=== PATIENT | female | born 1950 | race Caucasian/White ===

== ENCOUNTER 2017-05-24 15:01 | Inpatient (IN) | payer MEDICARE, BC ==
[2017-05-24] MEDS ORDERED: Ondansetron INJ* 2 MG/ML VIAL IV PRN (16:10)
[2017-05-24] MEDS ORDERED: Acetaminophen TAB* 325 MG PO PRN (16:10)
[2017-05-24] MEDS ORDERED: Zolpidem TAB* 5 MG PO PRN (16:17)
[2017-05-24] MEDS ORDERED: Clindamycin 600 MG IVPREMIX(* 600 MG/50 ML SDV IV SCH (17:00)
[2017-05-24] MEDS ORDERED: Zosyn per Pharmacy* NOTE FOLLOW UP SCH (17:00)
[2017-05-24] MEDS: HYDROcodone/ACET. 7.5/325 LIQ* 15 ML UDC PO PRN ×2 (17:08→21:12)
[2017-05-24] MEDS: Enoxaparin(*) 40 MG/0.4 ML SYR SUBCUT SCH (17:10)
[2017-05-24 17:38] LABS: Hematocrit 43 % (35-47); Hemoglobin 14.4 g/dl (12.0-16.0); Mean Corpuscular HGB Conc 34 g/dl (31-36); Mean Corpuscular Hemoglobin 31 pg (27-31); Mean Corpuscular Volume 93 fL (80-97); Mean Platelet Volume 9 um3 (7.4-10.4); Red Blood Count 4.61 10^6/ul (4.0-5.4); Red Cell Distribution Width 14 % (10.5-15); White Blood Count 10.8 10^3/ul (3.5-10.8)
[2017-05-24 18:02] LABS: Albumin 3.9 g/dL (3.2-5.2); C Reactive Protein 124.18 mg/L (< 5.00); Calcium 9.5 mg/dL (8.6-10.3); EGFR African American 128.6 (>60); Globulin 4.5 g/dL (2-4); Potassium 3.4 mmol/L (3.5-5.0); Total Bilirubin 0.5 mg/dL (0.2-1.0); Total Protein 8.4 g/dL (6.4-8.9)
[2017-05-24] MEDS: NS 0.9% 1000 ML* 1,000 ML IV SCH (18:39)
[2017-05-24] MEDS ORDERED: Potassium Chlor TAB* 10 MEQ TAB.ER PO ONE (18:45)
[2017-05-24 20:03] LABS: Erythrocyte Sed Rate 88 mm/Hr (0-40)
[2017-05-24] MEDS: ZOSYN 3.375 GM Q8H per EXTENDED INFUSION IVPB SCH ×2 (21:13)
[2017-05-24] MEDS: Chlorhexidine MOUTHWASH 0.12%* 15 ML UDC SWISH SPIT SCH (21:13)
[2017-05-24] MEDS: Dexamethasone IV* 4 MG/ML 1 ML (4 MG) IV SLOW PU SCH (21:13)
--- NOTE | 2017-05-24 21:55 | HP ---
CC: Dr. Tamia Steinberg; Dr. Montanez * HISTORY AND PHYSICAL: DATE OF ADMISSION: 05/24/17 PRIMARY CARE PROVIDER: Dr. Tamia Steinberg. ATTENDING PHYSICIAN WHILE IN THE HOSPITAL: Timbo Barcenas MD * (report being dictated by George Yu NP). CONSULTING ENT: Dr. Montanez. CHIEF COMPLAINT: 1. Left-sided facial swelling. 2. Erythema. HISTORY OF PRESENT ILLNESS: Ms. Nunez is a 67-year-old female patient that on Wednesday noticed that she was having some discomfort on the left side of her face. She sought care with a dentist who felt that she may need a root canal. She had a little bit of swelling there. This was last week on Wednesday. She went and saw a specialist doctor, Dr. Celaya, as it was thought that she would need a root canal. Unfortunately, Dr. Celaya felt that it was not a good time to operate or do any dental procedures given the fact that the patient had a significant amount of erythema and swelling at this point. The patient was following up with her dentist today down in [place] and they were concerned because the erythema and redness had gotten much worse. The patient said that throughout the weekend, she had had swelling. She had started antibiotics. On , 05/20/17, and Wednesday, things were looking better, but then yesterday they got worse again and today she got in and saw her dentist again. They evaluated her and felt that she needed to be evaluated by ENT because the swelling was starting to go up towards her ear on the left side and it was also going down into her neck. She was having pain. They felt that this may be stemming from possibly from an impacted wisdom tooth or something else. The patient went to Dr. Montanez's office. He evaluated her. It was felt that she would require IV antibiotics and IV steroids. So, she was sent to the hospital. The patient denies having any fevers. She denies having any chills. She says the redness and erythema has been getting worse over the last 36 to 24 hours. She says that despite the antibiotics, she has not been improving. The patient denied having any fevers or chills. There is no difficulty with swallowing. No changes in her voice and she stated it really started out in the back part of her mouth just along her left jaw line and then it has gotten much worse. She denied any other symptoms such as chest pain, shortness of breath, abdominal pain, or any nausea or vomiting. Because of this significant infection, we were asked to evaluate for admission. PAST MEDICAL HISTORY: Significant for: 1. Insomnia. 2. Anxiety. 3. Depression. 4. Hypothyroidism. PAST SURGICAL HISTORY: 1. She has had a laminectomy. 2. Tubal ligation. 3. Hysterectomy. HOME MEDICATIONS: Include: 1. Ambien 5 mg daily. 2. Prozac 40 mg a day. 3. Synthroid 100 mcg p.o. daily. ALLERGIES TO MEDICATIONS: Denied. FAMILY HISTORY: She was adopted. SOCIAL HISTORY: She does not smoke. She does drink a glass of wine mostly at night with dinner. Surrogate decision maker is her . REVIEW OF SYSTEMS: There is no documented fever. She denied having any significant weight change. There was no double vision. There was no ear discharge. There was no rhinorrhea. No sore throat. No thyroid enlargement. No chest pain. No orthopnea. No nocturnal dyspnea. There was no abdominal pain. No nausea, no vomiting. No dysuria, no frequency. No seizure, no loss of consciousness. No pruritus, no skin ulcerations. Review of 14 systems completed, all others negative. PHYSICAL EXAMINATION GENERAL: At this time, Ms. Nunez is a 67-year-old female patient. She is sitting in the hospital bed. She does not appear to be in any acute distress. VITAL SIGNS: Blood pressure 143/89, pulse 93, respirations 14, O2 sat of 100%, temperature 98.9. HEENT: Head: Atraumatic and normocephalic. Eyes: EOMs are intact. Sclerae anicteric and not pale. She does have significant amount of pain when palpating the fluid collection that is running along her left jaw bone. She does have some tenderness along her deep cervical chain on that left side and also some preauricular tenderness as well and there was a significant amount of erythema following the left jaw line. The oral mucosa appeared to be moist. No oropharyngeal erythema. NECK: Supple. She did have pain and tenderness along her left mandible. LUNGS: Clear to auscultation bilaterally. No wheezes, rales, or rhonchi. HEART: Sounds S1, S2. Regular rate and rhythm. No murmurs, rubs, or gallops. ABDOMEN: Soft, flat, and nontender. Bowel sounds present. EXTREMITIES: Pulses were 2+ throughout. She is able to move all 4 extremities with 5/5 strength. NEUROLOGIC: She is awake, alert, oriented x3. No gross focal deficits. SKIN: Grossly intact. DIAGNOSTIC STUDIES/LAB DATA: The labs are pending for today. The old medical records were reviewed. ASSESSMENT AND PLAN: Ms. Nunez is a 67-year-old female patient that presented to Dr. Montanez's office day after being referred their from her dentist's office. She was evaluated by Dr. Montanez, who felt that she would require IV antibiotics. So at that point, the hospitalist service was contacted for admission. She will be admitted under inpatient status for: 1. Left-sided facial cellulitis with possible facial abscess. At this point, Dr. Montanez again is evaluating. Plan is to go ahead and give her Decadron 4 mg every 8 hours, clindamycin 600 mg IV every 8 hours. In addition to this, penicillin G 4 million units every 4 hours. I am also going to put a call out to Dr. Ayala as well to see if there are any other recommendations for antibiotics. I did order chlorhexidine mouth wash t.i.d. I will continue to follow this closely. I am going to get a CBC, CMP, and blood cultures and I did order imaging tomorrow, CT of the soft tissue, neck and maxillofacial with contrast tomorrow. 2. Insomnia, continue p.r.n. Ambien. 3. Hypothyroidism, continue Synthroid. 4. Anxiety and depression, continue her Prozac. 5. DVT prophylaxis. She will be placed on Lovenox subcu. 6. Code status, full code. 16. Fluids, electrolytes, and nutrition. She can have regular diet. TIME SPENT: Time spent on the admission 60 minutes, greater than half of the time was spent [id number] with the patient obtaining my history and physical, other time spent going over the plan of care with the patient and implementing the plan of care. I did discuss the plan of care with my attending, Dr. Barcenas; he is in agreement. GEORGE YU NP [id number]/[facility] #: [id number] YASEMIN
[2017-05-24] MEDS ORDERED: Heparin VIAL(*) 5000 UNITS/ML VIAL (FIVE THOUSAND) SUBCUT SCH (22:00)
[2017-05-25] MEDS: ZOSYN 3.375 GM Q8H per EXTENDED INFUSION IVPB SCH ×6 (05:07→20:29)
[2017-05-25] MEDS: Levothyroxine TAB* 100 MCG TAB PO SCH (06:02)
[2017-05-25] MEDS: HYDROcodone/ACET. 7.5/325 LIQ* 15 ML UDC PO PRN ×2 (06:02→15:17)
[2017-05-25] MEDS: Dexamethasone IV* 4 MG/ML 1 ML (4 MG) IV SLOW PU SCH ×3 (06:03→23:55)
[2017-05-25 06:14] LABS: Hematocrit 38 % (35-47); Hemoglobin 12.9 g/dl (12.0-16.0); Mean Corpuscular HGB Conc 34 g/dl (31-36); Mean Corpuscular Hemoglobin 32 pg (27-31); Mean Corpuscular Volume 93 fL (80-97); Mean Platelet Volume 9 um3 (7.4-10.4); Red Blood Count 4.07 10^6/ul (4.0-5.4); Red Cell Distribution Width 14 % (10.5-15); White Blood Count 8.2 10^3/ul (3.5-10.8)
[2017-05-25 06:28] LABS: BUN/Creatinine Ratio 9.1 (8-20); Calcium 8.7 mg/dL (8.6-10.3); EGFR African American 142.2 (>60); EGFR Non-African American 110.6 (>60); Potassium 4.5 mmol/L (3.5-5.0)
[2017-05-25] MEDS ORDERED: Iohexol 300* (CONTRAST) 10 ML SDV IV ONE (08:37)
[2017-05-25] MEDS: FLUoxetine CAP* 20 MG PO SCH (09:17)
[2017-05-25] MEDS: Chlorhexidine MOUTHWASH 0.12%* 15 ML UDC SWISH SPIT SCH ×3 (09:18→20:27)
--- NOTE | 2017-05-25 09:18 | PN ---
Subjective Date of Service: 05/25/17 Interval History: Patient seen this morning. Reports improvement in her swelling and erythema over the L face, becoming more focal, had low grade fever yesterday evening. Dr. Montanez was in this morning as well. Family History: Unchanged from Admission Social History: Unchanged from Admission Past Medical History: Unchanged from Admission Objective Active Medications: Acetaminophen (Tylenol Tab*) 650 mg PO Q4H PRN PRN Reason: FEVER/PAIN Hydrocodone Bitart/Acetaminophen (Nortab 7.5/325 Liq*) 5 ml PO Q4H PRN PRN Reason: PAIN Last Admin: 05/25/17 06:02 Dose: 5 ml Chlorhexidine Gluconate (Peridex Mouth Wash 0.12%*) 15 ml SWISH SPIT TID [facility] Last Admin: 05/24/17 21:13 Dose: 15 ml Dexamethasone Sodium Phosphate (Decadron Iv*) 4 mg IV SLOW PU Q8HR [facility] Last Admin: 05/25/17 06:03 Dose: 4 mg Enoxaparin Sodium (Lovenox(*)) 40 mg SUBCUT Q24H [facility] Last Admin: 05/24/17 17:10 Dose: Not Given Fluoxetine HCl (Prozac Cap*) 40 mg PO DAILY [facility] Sodium Chloride (Ns 0.9% 1000 Ml*) 1,000 mls @ 100 mls/hr IV PER RATE [facility] Last Admin: 05/24/17 18:39 Dose: 100 mls/hr Piperacillin Sod/Tazobactam (Sod 3.375 gm/ Sodium Chloride) 100 mls @ 25 mls/ hr IVPB Q8H [facility] Last Admin: 05/25/17 05:07 Dose: 25 mls/hr Levothyroxine Sodium (Synthroid Tab*) 100 mcg PO DAILY@0600 [facility] Last Admin: 05/25/17 06:02 Dose: 100 mcg Ondansetron HCl (Zofran Inj*) 4 mg IV Q6H PRN PRN Reason: NAUSEA Pharmacy Consult (Zosyn Per Pharmacy*) 1 note FOLLOW UP .ZOSYN PER PHARMACY [facility] Zolpidem Tartrate (Ambien Tab*) 5 mg PO BEDTIME PRN PRN Reason: INSOMNIA Vital Signs 05/24/17 05/24/17 05/24/17 16:07 17:08 19:08 Temperature 98.9 F Pulse Rate 92 Respiratory 14 14 18 Rate Blood Pressure 143/89 (mmHg) O2 Sat by Pulse 100 Oximetry 05/24/17 05/24/17 05/24/17 19:42 19:44 21:12 Temperature 100.5 F Pulse Rate 78 Respiratory 18 18 18 Rate Blood Pressure 105/58 (mmHg) O2 Sat by Pulse 97 Oximetry 05/25/17 05/25/17 05/25/17 06:02 07:48 08:00 Temperature 98.0 F Pulse Rate 63 Respiratory 18 16 16 Rate Blood Pressure 102/55 (mmHg) O2 Sat by Pulse 94 94 Oximetry Oxygen Devices in Use Now: None Appearance: Middle-aged, F, laying in bed in NAD Eyes: No Scleral Icterus Ears/Nose/Mouth/Throat: - - Some edema on inside of L cheek, no purulence noted Neck: - - Erythema and edema over L mandible, fluctance, no discharge Respiratory: Symmetrical Chest Expansion and Respiratory Effort, Clear to Auscultation Cardiovascular: NL Sounds; No Murmurs; No JVD, RRR Abdominal: NL Sounds; No Tenderness; No Distention Lymphatic: No Cervical Adenopathy Extremities: No Edema Skin: No Rash or Ulcers Neurological: Alert and Oriented x 3 Result Diagrams: 05/25/17 05:56 05/25/17 05:57 Assess/Plan/Problems-Billing Assessment: L sided facial abscess, possibly related to impacted tooth in a 67 yo F with hx of anxiety, depression and hypothyroidism - Patient Problems (1) Facial abscess Current Visit: Yes Comment: Continue IV Zosyn. Appreciate ENT assistance. CT neck this AM. If abscess does not open on it's own, Dr. Montanez may take to the OR on 05/26 for I&D. (2) Hypothyroidism Current Visit: Yes Comment: Continue home synthroid (3) Depression Current Visit: Yes Comment: Continue Prozac (4) DVT prophylaxis Current Visit: Yes Comment: Lovenox SQ Status and Disposition: Inpatient for continued IV ABx and possible I&D
--- NOTE | 2017-05-25 09:29 | RAD ---
HISTORY: Facial cellulitis COMPARISONS: Thyroid ultrasound dated November 09, 2013 TECHNIQUE: Multiple contiguous axial CT scans were obtained of the neck after the administration of nonionic intravenous contrast, with coronal and sagittal multiplanar reformations. FINDINGS: Evaluation is somewhat limited by suboptimal contrast opacification. BRAIN AND ORBITS: The visualized brain and orbits are normal. PARANASAL SINUSES: The visualized paranasal sinuses are clear. SALIVARY GLANDS: The parotid glands, submandibular glands, sublingual glands are normal. NASAL CAVITY/NASOPHARYNX: The nasal cavity and nasopharynx are normal. ORAL CAVITY/OROPHARYNX: Evaluation limited by metallic streak artifact. There is asymmetry of the vallecula, larger on the right than on the left LARYNGEAL APPARATUS/HYPOPHARYNX: The laryngeal apparatus and hypopharynx are normal. UPPER AIRWAY/UPPER ESOPHAGUS: The visualized upper airway and esophagus are normal. LUNG APICES: There is a 1.1 cm nodule of the right upper lobe best seen on axial image 2. THYROID GLAND: The thyroid gland is atrophic. There is a heterogeneous enhancing nodule of the left inferior thyroid measuring approximately 2.3 cm in size. LYMPH NODES: There are enlarged lymph nodes at level 2 and 3 on the left measuring up to 1.3 cm in short axis. VASCULATURE: The vasculature is unremarkable. BONES AND SOFT TISSUES: There is inflammatory change along the left mandible, measuring approximately 4.1 x 2.5 x 2.2 cm in size. There is no definite loculated fluid collection. Degenerative changes are noted of the spine OTHER: None. IMPRESSION: 1. THERE IS INFLAMMATORY CHANGE ALONG THE LEFT MANDIBLE, CONSISTENT WITH PHLEGMON, WITHOUT DEFINITE LOCULATED FLUID COLLECTION TO SUGGEST ABSCESS, THOUGH EVALUATION IS LIMITED BY STREAK ARTIFACT FROM METALLIC DENTAL HARDWARE. 2. THERE IS LEFT UPPER CERVICAL LYMPHADENOPATHY. 3. THERE IS ASYMMETRY OF THE VALLECULA, LARGER ON THE RIGHT THAN ON THE LEFT. THIS MAY REFLECT ATROPHY ON THE RIGHT, OR A MASS LESION ON THE LEFT. RECOMMEND CORRELATION WITH DIRECT VISUALIZATION OF THE ORAL CAVITY. THERE IS A 2.3 CM NODULE OF THE LEFT INFERIOR THYROID. THIS CORRESPONDS TO THE LESION NOTED ON PREVIOUS ULTRASOUND. 4. THERE IS A 1.3 CM NODULE OF THE RIGHT UPPER LOBE. THE RECOMMENDATIONS FOR FOLLOWUP AND MANAGEMENT OF AN INCIDENTALLY DETECTED PULMONARY NODULE GREATER THAN 8 MM IN SIZE, IN A PATIENT WITHOUT A HISTORY OF MALIGNANCY, INCLUDE FOLLOWUP CT AT 3 MONTHS, PET-CT, AND/OR BIOPSY. NOTES: SIZE = AVERAGE LENGTH AND WIDTH; HIGH RISK IS DEFINED A HISTORY OF SMOKING OR OTHER KNOW RISK FACTORS FOR LUNG CANCER; LOW RISK IS DEFINED MINIMAL OR ABSENT HISTORY OF SMOKING OR OTHER KNOWN RISK FACTORS. Lance Clarke, STEPHANIE Lanza, CRISTIANE More, et al (2017) "Guidelines for Management of Incidental Pulmonary Nodules Detected on CT Images: From the Fleischner Society 2017." Radiology; 284(1): 228-243. doi:10.1148/radiol.6455338181
[2017-05-25] MEDS ORDERED: Buffered Lidocaine 0.9% SYRIN* 5 ML/SYR SYRINGE INTRADERM ONE (12:23)
[2017-05-25] MEDS: Enoxaparin(*) 40 MG/0.4 ML SYR SUBCUT SCH (17:58)
[2017-05-26] MEDS: NS 0.9% 1000 ML* 1,000 ML IV SCH (01:34)
[2017-05-26] MEDS: Levothyroxine TAB* 100 MCG TAB PO SCH (05:54)
[2017-05-26] MEDS: Dexamethasone IV* 4 MG/ML 1 ML (4 MG) IV SLOW PU SCH (05:54)
[2017-05-26] MEDS: ZOSYN 3.375 GM Q8H per EXTENDED INFUSION IVPB SCH ×2 (05:56)
[2017-05-26] MEDS ORDERED: Buffered Lidocaine 0.9% SYRIN* 5 ML/SYR SYRINGE INTRADERM ONE (06:00)
[2017-05-26] MEDS: FLUoxetine CAP* 20 MG PO SCH (08:56)
[2017-05-26] MEDS: Chlorhexidine MOUTHWASH 0.12%* 15 ML UDC SWISH SPIT SCH (08:56)
[2017-05-26] MEDS ORDERED: Famotidine IV* 10 MG/ML 2 ML (20 mg) IV ONE (10:00)
[2017-05-26] MEDS ORDERED: Famotidine IV* 10 MG/ML 2 ML (20 mg) ONE (12:31)
--- NOTE | 2017-05-26 13:37 | CONS ---
CONSULTATION REPORT: DATE OF CONSULT: 05/26/17 REQUESTING PHYSICIAN: Dr. Miller. CONSULTING SERVICE: Infectious Disease. REASON FOR CONSULT: Left mandible abscess. IMPRESSION: Cutaneous abscess over the left mandible in the setting of fractured wisdom tooth, I suspect odontogenic infection. She does have left cervical adenopathy, suspect reactive to the left face infection. Usual organisms include oral vicki, strep, some gram negatives, anaerobes, actinomyces. She is improving with prednisone and Zosyn. RECOMMENDATION: Continue Zosyn, she is going to the OR today, we will evaluate her culture material. HISTORY OF PRESENT ILLNESS: This is a 67-year-old woman who had about the last 10 days left mandibular tooth pain, had seen her dentist, apparently there was a fracture of a wisdom tooth, a root canal was being considered. She had a couple of bridges removed and with worsening pain and then redness, swelling, over her left face, she was seen by ENT and referred to the hospital for IV treatment. She had been on penicillin as an outpatient. Here, she has received IV steroids and IV antibiotics. CT scan showed a phlegmon along the left mandible, left upper cervical lymphadenopathy. PAST MEDICAL HISTORY: 1. Insomnia. 2. Anxiety. 3. Depression. 4. Hypothyroidism. 5. Status post laminectomy. 6. Status post tubal ligation. 7. Status post hysterectomy. MEDICATIONS: 1. Tylenol. 2. Fluoxetine. 3. Chlorhexidine mouthwash. 4. Vicodin. 5. Levothyroxine. 6. Zosyn 3.375 g IV every 8 hours by extended infusion. ALLERGIES: No known drug allergies. FAMILY HISTORY: She was adopted, so it is unknown. SOCIAL HISTORY: Nonsmoker. Lives in [place]. REVIEW OF SYSTEMS: Fourteen-point review of systems was all negative except as noted above. PHYSICAL EXAM: Vital Signs: Temperature 36.7, heart rate 63, respiratory rate 16, blood pressure 123/58, O2 sat 92% on room air. In general, she is awake, not in distress. Neurologic: She is oriented x3, follows all commands. HEENT : There is no conjunctival hemorrhage. There are bilateral mandibular teeth absent. There is left posterior mandibular teeth tenderness to palpation. She has mild trismus. There is erythema and induration, warmth over her left lateral mandible. Lymph Nodes: There is palpable posterior, anterior cervical adenopathy on the left. Heart has regular rate and rhythm without murmurs, rubs , or gallops. Lungs are clear to auscultation bilaterally. Abdomen: Soft, nontender, nondistended. There are bowel sounds present. Skin: There is no rash or splinter hemorrhages. Musculoskeletal: No spine tenderness to palpation. LABORATORY DATA: White blood cell count 8, hemoglobin 12, platelets 280. Creatinine is 0.5. CRP 125. Please see impressions and recommendations outlined above, which I have discussed with Dr. Miller. Thank you for asking me to see Ms. Nunez in consultation. [id number]/[facility] #: [id number] [facility]
[2017-05-26] MEDS ORDERED: HYDROcodone/ACETAMIN 5-325 MG* 1 TAB PO PRN (13:48)
[2017-05-26] MEDS ORDERED: PROCHLORPERAZINE INJ 5 MG/ML 2 ML VIAL IV PRN (13:48)
[2017-05-26] MEDS ORDERED: Midazolam* 1 MG/ML 5 ML VIAL (5 MG) ONE (13:50)
[2017-05-26] MEDS ORDERED: fentaNYL* 50 MCG/ML 2 ML VIAL (100 MCG VIAL) ONE ×3 (13:50→15:22)
[2017-05-26] MEDS ORDERED: Lidocaine 2% EPI 1:200000 MPF* 20 ML VIAL ONE (13:53)
[2017-05-26] MEDS ORDERED: Propofol* 10 MG/ML 20 ML BTL IV PUSH ONE (14:00)
[2017-05-26] MEDS ORDERED: Ondansetron INJ* 2 MG/ML VIAL ONE (14:22)
--- NOTE | 2017-05-26 14:39 | DCNOTE ---
Patient seen this morning. Continues to have improvement in her symptoms, reports some purulent discharge yesterday with warm compresses. On exam, improvement in L mandible erytema, mangle tender/firm area present, RRR , s1 and s2 present Spoke with Dr. Leger, after I&D and drain placement, plan to discharge from PACU. He will prescribe Augmentin and f/u with her in the office on Monday 05/28
[2017-05-26] MEDS: fentaNYL* 50 MCG/ML 2 ML VIAL (100 MCG VIAL) IV PRN ×4 (14:47→16:11)
[2017-05-26] MEDS ORDERED: oxyCODONE/Acetamin 5/325 MG* TAB ONE ×2 (15:02→15:06)
[2017-05-26] MEDS: oxyCODONE/Acetamin 5/325 MG* TAB PO PRN ×2 (15:04→15:07)
[2017-05-26 16:23] VITALS: BP 146/93
--- NOTE | 2017-05-27 02:27 | DS ---
CC: Dr. Steinberg * DISCHARGE SUMMARY: DATE OF ADMISSION: 05/24/17 DATE OF DISCHARGE: 05/26/17 PRIMARY CARE PHYSICIAN: Dr. Steinberg. CONSULTANTS DURING HOSPITALIZATION: Dr. Montanez; Dr. Leger, ENT. DISCHARGE MEDICATION REGIMEN: 1. Augmentin 875 mg by mouth 3 times daily. 2. [place] 2 tablets by mouth every 4 hours as needed for pain. 3. Fluoxetine 40 mg by mouth daily. 4. Synthroid 100 mcg by mouth daily. 5. Ambien 5 mg by mouth at bedtime as needed for insomnia. STUDIES DONE DURING HOSPITALIZATION: CT of soft tissue of the neck with contrast, impression: There is inflammatory change along the left mandible consistent with phlegmon without definite loculated fluid collection to suggest abscess. The evaluation was limited by streak artifact from the metallic dental hardware. There is a left upper cervical lymphadenopathy. There is asymmetry of the vallecula, larger on the right than on the left. This may reflect atrophy on the right or mass lesion on the left. Recommend correlation with direct visualization of the oral cavity. There is a 2.3 cm nodule in the left inferior thyroid. This corresponds to lesion noted on previous ultrasound. There is a 1.3 cm nodule of the right upper lobe. Recommendations for followup and management of an incidentally detected pulmonary nodule greater than 8 mm in size in a patient without history of malignancy including followup CT of 3 months, PET-CT and/or biopsy. HISTORY OF PRESENT ILLNESS AND HOSPITAL SUMMARY: Please see the full history and physical by George Yu NP for full details. Briefly, Ms. Nunez is a 67-year- old female with a past medical history as above, who presented to the hospital with progressive erythema and swelling on the left side of her face. She had seen a dentist and oral surgeon as well as a root canal specialist, was subsequently sent to an ENT. Dr. Montanez evaluated her in the office and sent her into the hospital for IV antibiotics and steroids. She was taken to the OR on 05/26/17 for I and D and drain placement by Dr. Leger. The patient remained afebrile throughout hospitalization aside from low-grade fever on the first evening of 100.5. She never had elevated white blood cell count. She will be discharged with the drain in place and continue on oral Augment and will follow up with Dr. Leger later this week for drain removal. TIME SPENT: Total time spent on this discharge 45 minutes. This is a summary of this hospitalization, please see the full medical record for further details. [id number]/[facility] #: [id number] MTDD
--- NOTE | 2017-05-27 03:49 | OP ---
DATE OF OPERATION: 05/26/17 - ROOM #414 DATE OF : 52 SURGEON: Dyllan Leger M.D. ANESTHESIOLOGIST: Jad Gann MD ANESTHESIA: General PRE-OP DIAGNOSIS: Dental abscess. POST-OP DIAGNOSIS: Dental abscess. OPERATIVE PROCEDURE: Incision and drainage of dental abscess. BRIEF HISTORY: This pleasant 67-year-old female with a right dental abscess was noted to have significant induration, erythema, and starting to drain, and there was also some involvement in the oral cavity. She had been on IV antibiotics for 2 days, with no improvement. DESCRIPTION OF PROCEDURE: The patient was taken to the operating room, general anesthetic was given with LMA. The face was then prepped and draped in the usual fashion. A small incision was made in the skin and then subsequently blunt dissection was carried out in the plane of the marginal mandibular nerve, careful to avoid it as best as possible. Careful scooping of the fairly necrotic material was carried out. This was sent for pathology. Cultures for aerobic and anaerobics were performed. There was an extension to the oral cavity. I made a small incision in the oral cavity mucosa along the alveolar ridge and taken to the body of the mandible, just posterior of the mental foramen. Careful scraping was carried out to remove all the granulated tissue. I then packed the area with Nu gauze, approximately 10 cm. Small dressing was applied. The patient was then awakened, sent to recovery room in stable condition. Instrument and sponge counts were correct. Blood loss minimal. [id number]/[facility] #: [id number] MTDD
== END 2017-05-26 16:26 | disposition home or self-care (01) | DRG 137 ==
LOC: MED 16:04
PROVIDERS: ADMIT Internal Medicine; ATTEND Hospitalist
PROC: 0W950ZZ Drainage of Lower Jaw, Open Approach (ICD-10-PCS; principal; 2017-05-26 12:30)
DX: K04.7 Periapical abscess without sinus (principal); L03.211 Cellulitis of face; E03.9 Hypothyroidism, unspecified; F32.9 Major depressive disorder, single episode, unspecified; M27.2 Inflammatory conditions of jaws; F41.9 Anxiety disorder, unspecified; G47.00 Insomnia, unspecified; R59.0 Localized enlarged lymph nodes; K08.20 Unspecified atrophy of edentulous alveolar ridge; E04.1 Nontoxic single thyroid nodule; R91.1 Solitary pulmonary nodule; Z98.51 Tubal ligation status; Z90.710 Acquired absence of both cervix and uterus
CPT/HCPCS: 36415; 70491; 80048; 80053; 85025; 85610; 85652; 86140; 87040; 87070; 87073; 87077; 87186; 87205; 87640; 87641; 88304; A9270-GY; J1100; J1650; J2250; J2405; J2540; J2543; J2704; J3010; Q9967

== ENCOUNTER 2017-12-05 12:38 | Emergency (ER) | payer MEDICARE, BC ==
[2017-12-05 13:04] VITALS: BP 183/82
[2017-12-05] MEDS ORDERED: clonazePAM TAB(*) 1 MG PO ONE (13:32)
[2017-12-05] MEDS ORDERED: LORazepam TAB(*) 1 MG PO ONE (13:39)
--- NOTE | 2017-12-05 15:26 | UC ---
General HPI - HPI Summary HPI Summary: Patient accompanied by . states patient has been feeling very sad , it was the 4th anniversary of son's and her boss, who was her friend, is not working with her anymore recently. Denies suicidal or homicidal ideation. Four days ago she felt disoriented while driving but was able to get home safely by herself. She had palpitations and SOB 2 days ago and went to PCP , EKG was reported normal and she was discharged home. 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 CUrrently she is very anxious, and feels teary. - History of Current Complaint Chief Complaint: UCGeneralIllness Stated Complaint: ALTERED MENTAL STATUS Time Seen by Provider: 12/05/17 13:14 Hx Obtained From: Patient, Family/Admissions Gate Attendant Onset/Duration: Gradual Onset, Lasting Days Onset Severity: Mild Current Severity: Moderate Pain Intensity: 0 Associated Signs & Symptoms: Positive: Confusion, Palpitations - Allergy/Home Medications Allergies/Adverse Reactions: Allergies Allergy/AdvReac Type Severity Reaction Status Date / Time No Known Allergies Allergy Verified 12/05/17 12:52 PMH/Surg Hx/FS Hx/Imm Hx Previously Healthy: Yes Endocrine History: Thyroid Disease Psychological History: Depression Other History Of: Negative For: Anticoagulant Therapy - Surgical History Surgical History: Yes Surgery Procedure, Year, and Place: HYSTERECTOMY, TUBAL , BACK SURGERY , left face for strep infection - Social History Alcohol Use: Occasionally Alcohol Amount: "social drinker" Substance Use Type: None Smoking Status (MU): Never Smoked Tobacco Have You Smoked in the Last Year: No - Immunization History Most Recent Influenza Vaccination: 2016 Most Recent Pneumonia Vaccination: 2016 Review of Systems Constitutional: Negative Neurological: Negative All Other Systems Reviewed And Are Negative: Yes Physical Exam Triage Information Reviewed: Yes Appearance: Well-Appearing, Obese, Other: - teary and crying Vital Signs: Initial Vital Signs Temp 97.1 F 12/05/17 12:54 Pulse 78 12/05/17 12:54 Resp 16 12/05/17 12:54 BP 183/82 12/05/17 12:54 Pulse Ox 98 12/05/17 12:54 Eye Exam: Normal ENT: Positive: Hearing grossly normal, Pharynx normal, TMs normal Neck: Positive: Supple, Nontender Respiratory: Positive: Chest non-tender, Lungs clear, Normal breath sounds, No respiratory distress Cardiovascular: Positive: RRR, No Murmur, Pulses Normal, Brisk Capillary Refill Abdomen Description: Positive: Nontender, No Organomegaly, Soft Neurological Exam: Normal Neurological: Positive: Alert, Muscle Tone Normal - CN II-XII grossly intact, sensory intact, gait is normal, strength 5/5x4, cerebellar testing normal. Romberg negative Course/Dx - Course Course Of Treatment: Patient has history of depression and recently had loss of friend and anniversary of the loss of her child. Patient denies suicidal/ homicidal ideation and has been very anxious. Ativan given and f/u with PCP tomorrow. - Differential Dx - Multi-Symptom Provider Diagnoses: Anxiety. Depression Discharge - Sign-Out/Discharge Documenting (check all that apply): Discharge - Discharge Plan Condition: Stable Disposition: HOME Patient Education Materials: Lorazepam (By mouth), Anxiety (ED), Panic Attack ( ED) Referrals: Tamia Steinberg MD [Primary Care Provider] - - Billing Disposition and Condition Condition: STABLE Disposition: HOME
--- NOTE | 2017-12-07 14:07 | RAD ---
HISTORY: Chronic headache COMPARISONS: None TECHNIQUE: Multiple contiguous axial CT scans were obtained of the head without intravenous contrast. FINDINGS: HEMORRHAGE/INFARCT: There is no hemorrhage or acute infarct. MASSES/SHIFT: There is no mass or shift. EXTRA-AXIAL SPACES: There are no extra-axial fluid collections. SULCI AND VENTRICLES: The sulci and ventricles are normal in size and position for the patient's stated age. CEREBRUM: There are no focal parenchymal abnormalities. BRAINSTEM: There are no focal parenchymal abnormalities. CEREBELLUM: There are no focal parenchymal abnormalities. VESSELS: The vessels are grossly normal. PARANASAL SINUSES: The paranasal sinuses are clear. ORBITS: The orbits are unremarkable. BONES AND SOFT TISSUE: No bone or soft tissue abnormalities are noted. OTHER: None IMPRESSION: NO ACUTE INTRACRANIAL PATHOLOGY.
== END 2017-12-05 13:58 | disposition home or self-care (01) ==
LOC: UCEAST 12:38
DX: F41.9 Anxiety disorder, unspecified (principal); F32.9 Major depressive disorder, single episode, unspecified; R00.2 Palpitations; R41.0 Disorientation, unspecified; E07.9 Disorder of thyroid, unspecified
CPT/HCPCS: 70450; 99212; A9270-GY; G0463